=== PATIENT | female | born 1940 | race Caucasian/White ===

== ENCOUNTER 2018-09-11 09:45 | Emergency (ER) | payer OTHER ==
[~2018-09-11] VITALS: Ht 157.5 cm; Wt 65.8 kg
[2018-09-11] MEDS ORDERED: COZAAR50 MG (10:06)
[2018-09-11] MEDS ORDERED: ZITHROMAX1 GM (10:07)
[2018-09-11] MEDS ORDERED: HYDROCHLOROTHIA50 MG (10:07)
[2018-09-11] MEDS ORDERED: LIPITOR20 MG (10:07)
== END 2018-09-11 15:41 | disposition home or self-care (01) ==
LOC: ER 09:45
DX: J45.998 Other asthma (principal); J11.1 Influenza due to unidentified influenza virus with other respiratory manifestations

== ENCOUNTER 2021-03-21 11:49 | Inpatient (IN) | payer OTHER ==
[~2021-03-21] VITALS: Ht 160 cm; Wt 83.9 kg
[~2021-03-21 11:49] MED LIST: COZAAR50 MG; HYDROCHLOROTHIA50 MG; LIPITOR20 MG; ZITHROMAX1 GM
[2021-03-21] MEDS ORDERED: MULTI VITAMIN1 EACH PO (12:36)
== END 2021-03-23 15:24 | disposition designated cancer center or children's hospital (05) | DRG 282 ==
LOC: ER 11:49 → MEDJ 20:14
PROVIDERS: ADMIT Internal Medicine; ATTEND Internal Medicine
PROC: 4A12X4Z Monitoring of Cardiac Electrical Activity, External Approach (ICD-10-PCS; principal; 2021-03-21)
PROC: 3E0F7SF Introduction of Other Gas into Respiratory Tract, Via Natural or Artificial Opening (ICD-10-PCS; 2021-03-21)
PROC: 3E0F7GC Introduction of Other Therapeutic Substance into Respiratory Tract, Via Natural or Artificial Opening (ICD-10-PCS; 2021-03-21)
PROC: 4A033R1 Measurement of Arterial Saturation, Peripheral, Percutaneous Approach (ICD-10-PCS; 2021-03-21)
PROC: B24BZZZ Ultrasonography of Heart with Aorta (ICD-10-PCS; 2021-03-22)
DX: I21.4 Non-ST elevation (NSTEMI) myocardial infarction (principal); J45.998 Other asthma; J06.9 Acute upper respiratory infection, unspecified; I10 Essential (primary) hypertension; Z20.822 Contact with and (suspected) exposure to COVID-19